=== PATIENT | female | born 1985 | race Caucasian/White ===

== ENCOUNTER 2019-01-14 19:27 | Emergency (ER) | payer OTHER ==
[~2019-01-14] VITALS: Ht 172.7 cm; Wt 108.9 kg
[2019-01-14 19:30] VITALS: BP 146/87
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
[2019-01-14] MEDS: ONDANSETRON ODT 4 MG TAB.RAPDIS. PO ONE (20:27)
[2019-01-14] MEDS: HYDROcodone/APAP 5/325MG 1 TAB TABLET PO ONE (20:28)
[2019-01-14 20:43] LABS: BILIRUBIN,URINE NEGATIVE (NEG); CLARITY,URINE CLEAR; COLOR,URINE YELLOW; NITRITE,URINE NEGATIVE (NEG); PH,URINE 5.5; PROTEIN,URINE NEGATIVE (NEG-TRACE); UROBILINOGEN,URINE 0.2 mg/dL (0.2 mg/dL)
[2019-01-14] MEDS ORDERED: HYDR-3164 PO (20:54)
[2019-01-14 20:59] LABS: BACTERIA,URINE FEW /HPF (0-FEW); SQUAMOUS EPITHELIAL CELL,UR MANY /LPF
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
== END 2019-01-14 21:15 | disposition home or self-care (01) ==
LOC: ER 19:27
DX: S40.022A Contusion of left upper arm, initial encounter (principal); K21.9 Gastro-esophageal reflux disease without esophagitis; V23.0XXA Motorcycle driver injured in collision with car, pick-up truck or van in nontraffic accident, initial encounter; Y93.89 Activity, other specified; Y92.410 Unspecified street and highway as the place of occurrence of the external cause; Y99.8 Other external cause status
CPT/HCPCS: 71045; 72100; 73030; 73060; 81001; 81025; 99284; Q0162; 99283